=== PATIENT | male | born 1965 | race Caucasian/White ===

== ENCOUNTER 2019-02-10 04:33 | Emergency (ER) | payer OTHER ==
[2019-02-10 04:41] VITALS: TEMP 97.7
[2019-02-10] MEDS ORDERED: SODIUM CHLORIDE 0.9% 1,000 ML IV STA (04:42)
[2019-02-10 05:00] LABS: Basophils % (A) 1 %; Eosinophils # (A) 0.1 k/uL (0-0.7); Eosinophils % (A) 2 %; HCT 40.2 % (39.0-53.0); HGB 13.9 gm/dL (13.0-17.5); Lymphocytes # (A) 1.4 k/uL (1.0-4.8); Lymphocytes % (A) 33 %; MCH 31.8 pg (25.0-35.0); MCHC 34.6 g/dL (31.0-37.0); MCV 91.9 fL (80.0-100.0); Mean Platelet Volume 6.1; Monocytes # (A) 0.2 k/uL (0-1.0); Monocytes % (A) 6 %; Neutrophils # (A) 2.4 k/uL (1.3-7.7); Neutrophils % (A) 56 %; Platelet Count 235 k/uL (150-450); RBC 4.37 m/uL (4.30-5.90); RDW 12.3 % (11.5-15.5); WBC 4.3 k/uL (3.8-10.6)
[2019-02-10 05:12] LABS: ALT 27 U/L (21-72); AST 18 U/L (17-59); African American GFR (CKD) >90 (>60 ml/min/1.73 sqM); Albumin 3.7 g/dL (3.5-5.0); Alkaline Phosphatase 82 U/L (38-126); Anion Gap 8 mmol/L; Blood Urea Nitrogen 17 mg/dL (9-20); Calcium 8.5 mg/dL (8.4-10.2); Carbon Dioxide 24 mmol/L (22-30); Chloride 104 mmol/L (98-107); Glucose 311 mg/dL (74-99); Magnesium 1.9 mg/dL (1.6-2.3); Non-African American GFR(CKD) >90 (>60 ml/min/1.73 sqM); Potassium 4.1 mmol/L (3.5-5.1); Sodium 136 mmol/L (137-145); Total Bilirubin 0.4 mg/dL (0.2-1.3); Total Protein 6.7 g/dL (6.3-8.2)
--- NOTE | 2019-02-10 05:22 | XR ---
EXAMINATION TYPE: XR chest 2V DATE OF EXAM: 02/10/2019 COMPARISON: NONE HISTORY: Chest pain TECHNIQUE: Frontal and lateral views of the chest are obtained. FINDINGS: Heart and mediastinum are normal. Lungs are clear. Diaphragm is normal. Bony thorax appear s normal. IMPRESSION: Normal chest
[2019-02-10 05:26] LABS: INR 0.9 (<1.2); Partial Thromboplastin Time 26.1 sec (22.0-30.0); Prothrombin Time 10.1 sec (9.0-12.0)
[2019-02-10] MEDS ORDERED: ONDANSETRON 4 MG/2 ML VIAL IVP STA (05:37)
[2019-02-10] MEDS ORDERED: MORPHINE SULFATE 4 MG/ML SYRINGE IVP STA (05:37)
--- NOTE | 2019-02-10 05:43 | ED ---
General Adult HPI - General Source: patient Mode of arrival: ambulatory Limitations: no limitations <Verónica Donato - Last Filed: 02/13/19 04:39> <Karen Wood - Last Filed: 02/18/19 09:56> - General Chief complaint: Chest Pain Stated complaint: Chest Pain Time Seen by Provider: 02/10/19 04:42 - History of Present Illness Initial comments: Vazquez is a 53-year-old gentleman with a history of insulin-dependent diabetes, patient presents the emergency department today for evaluation of epigastric abdominal pain that woke him from sleep. Patient reports that he was in his usual state of health throughout the day yesterday, he does normal diet, he woke from sleep suddenly around 3 AM with a stabbing crushing pain in his epigastrium radiating to his back. Pain was associated nausea but no vomiting. No fevers or chills. Some pain with deep inhalation but no shortness of breath, diaphoresis or lightheadedness. Patient has no cardiac history. He is a nonsmoker, no formal diagnosis of hypertension though he was noted to be hypertensive upon EMS arrival. Family called 911 due to his complaint of pain. EMS arrived on scene to find the patient quite uncomfortable, holding his epigastrium and lower chest. EKG was unremarkable he was given aspirin and nitro with no change in his pain. His blood pressure did improve after nitro. (Verónica Donato) - Related Data Home Medications Medication Instructions Recorded Confirmed Ergocalciferol [Vitamin D2] 50,000 unit PO LEACH 02/10/19 02/10/19 Insulin Glargine,Hum.rec.anlog 20 unit SQ HS 02/10/19 02/10/19 [Basaglar Kwikpen U-100] Insulin Lispro [humaLOG Kwikpen] 15 unit SQ AC-TID 02/10/19 02/10/19 Meloxicam 15 mg PO DAILY PRN 02/10/19 02/10/19 Previous Rx's Medication Instructions Recorded Omeprazole [PriLOSEC] 20 mg PO AC-BRKFST #14 cap 02/10/19 Ranitidine HCl [Zantac] 150 mg PO BID PRN #20 tablet 02/10/19 Allergies Allergy/AdvReac Type Severity Reaction Status Date / Time No Known Allergies Allergy Verified 02/10/19 07:22 Review of Systems ROS Other: All systems not noted in ROS Statement are negative. <Verónica Donato - Last Filed: 02/13/19 04:39> ROS Other: All systems not noted in ROS Statement are negative. <Karen Wood Deshawn - Last Filed: 02/18/19 09:56> ROS Statement: Those systems with pertinent positive or pertinent negative responses have been documented in the HPI. Past Medical History Past Medical History: Diabetes Mellitus, Hyperlipidemia, Hypertension History of Any Multi-Drug Resistant Organisms: None Reported Past Surgical History: Orthopedic Surgery Past Psychological History: No Psychological Hx Reported Smoking Status: Never smoker Past Alcohol Use History: Occasional Past Drug Use History: Marijuana <Verónica Donato - Last Filed: 02/13/19 04:39> General Exam Limitations: no limitations <Verónica Donato - Last Filed: 02/13/19 04:39> - General Exam Comments Initial Comments: Physical Exam GENERAL: Patient is well-developed and well-nourished. Patient is nontoxic and well- hydrated and is in no distress. HENT: Normocephalic, Atraumatic. EYES: PERRL, EOMI PULMONARY: Unlabored respirations. No audible rales rhonchi or wheezing was noted. CARDIOVASCULAR: There is a regular rate and rhythm without any murmurs gallops or rubs. ABDOMEN: Tenderness to palpation in the epigastrium no right upper quadrant tenderness, negative Rojas sign : Deferred NEUROLOGIC: Patient is alert and oriented x3. Moving all extremities spontaneously MUSCULOSKELETAL: Normal extremities with adequate strength and full range of motion. No lower extremity swelling or edema. No calf tenderness. PSYCHIATRIC: Normal psychiatric evaluation. (Verónica Donato) Course Vital Signs 02/10/19 02/10/19 02/10/19 04:37 06:38 07:00 Temperature 97.7 F Pulse Rate 68 65 72 Respiratory 18 16 18 Rate Blood Pressure 152/86 135/82 131/82 O2 Sat by Pulse 99 97 97 Oximetry 02/10/19 02/10/19 08:00 09:00 Temperature Pulse Rate 65 68 Respiratory 18 16 Rate Blood Pressure 127/78 124/77 O2 Sat by Pulse 96 97 Oximetry EKG Findings - EKG Comments: EKG Findings:: KG was obtained due to complaint of epigastric discomfort in a 53-year-old male. EKG was obtained at 4:42 AM, rate is 65 rhythm is sinus there is a normal axis, there are normal intervals, NM 150, QRS 84, QTC 43. There are no acute ST elevations or depressions there is no evidence of acute ischemia or infarction. <Verónica Donato - Last Filed: 02/13/19 04:39> Medical Decision Making - Lab Data Result diagrams: 02/10/19 04:49 02/10/19 04:49 <Verónica Donato - Last Filed: 02/13/19 04:39> - Lab Data Result diagrams: 02/10/19 04:49 02/10/19 04:49 <Karen Wood - Last Filed: 02/18/19 09:56> - Medical Decision Making Patient was seen and evaluated, history is obtained from the patient and EMS XI this is a 53-year-old diabetic male who called 911 for evaluation of epigastric and lower chest pain associated with nausea, no vomiting no diaphoresis no radiation of pain to the shoulders, no previous cardiac history. Patient is a former alcoholic reports he has had some alcohol in the past couple of weeks due to visiting family members but is not a daily drinker. No history of pancreatitis. Labs and imaging ordered. EKG was nonischemic chest x-ray was unremarkable labs resulted with a mildly elevated lipase consistent with early pancreatitis. Patient has no history of such. CT and ultrasound were ordered. An care was signed out to Dr. Wood pending imaging. Given normal imaging the patient will be stable for discharge home. (Verónica Donato) I discussed the case with the patient. I discussed the diagnosis, differential and treatment options. The patient will be discharged home with follow up information for the GI physician executive relations specialist. Return parameters were discussed. The patient understood and agreed with the treatment plan. (Karen Wood) - Lab Data Lab Results 02/10/19 02/10/19 02/10/19 Range/Units 04:49 04:49 04:49 WBC 4.3 (3.8-10.6) k/uL RBC 4.37 (4.30-5.90) m/uL Hgb 13.9 (13.0-17.5) gm/dL Hct 40.2 (39.0-53.0) % MCV 91.9 (80.0-100.0) fL MCH 31.8 (25.0-35.0) pg MCHC 34.6 (31.0-37.0) g/dL RDW 12.3 (11.5-15.5) % Plt Count 235 (150-450) k/uL Neutrophils % 56 % Lymphocytes % 33 % Monocytes % 6 % Eosinophils % 2 % Basophils % 1 % Neutrophils # 2.4 (1.3-7.7) k/uL Lymphocytes # 1.4 (1.0-4.8) k/uL Monocytes # 0.2 (0-1.0) k/uL Eosinophils # 0.1 (0-0.7) k/uL Basophils # 0.0 (0-0.2) k/uL PT (9.0-12.0) sec INR (<1.2) APTT (22.0-30.0) sec Sodium 136 L (137-145) mmol/L Potassium 4.1 (3.5-5.1) mmol/L Chloride 104 (98-107) mmol/L Carbon Dioxide 24 (22-30) mmol/L Anion Gap 8 mmol/L BUN 17 (9-20) mg/dL Creatinine 0.69 (0.66-1.25) mg/dL Est GFR (CKD-EPI)AfAm >90 (>60 ml/min/1.73 sqM) Est GFR (CKD-EPI)NonAf >90 (>60 ml/min/1.73 sqM) Glucose 311 H (74-99) mg/dL Calcium 8.5 (8.4-10.2) mg/dL Magnesium 1.9 (1.6-2.3) mg/dL Total Bilirubin 0.4 (0.2-1.3) mg/dL AST 18 (17-59) U/L ALT 27 (21-72) U/L Alkaline Phosphatase 82 (38-126) U/L Troponin I (0.000-0.034) ng/mL NT-Pro-B Natriuret Pep <11 pg/mL Total Protein 6.7 (6.3-8.2) g/dL Albumin 3.7 (3.5-5.0) g/dL Lipase (23-300) U/L 02/10/19 02/10/19 02/10/19 Range/Units 04:49 04:49 04:49 WBC (3.8-10.6) k/uL RBC (4.30-5.90) m/uL Hgb (13.0-17.5) gm/dL Hct (39.0-53.0) % MCV (80.0-100.0) fL MCH (25.0-35.0) pg MCHC (31.0-37.0) g/dL RDW (11.5-15.5) % Plt Count (150-450) k/uL Neutrophils % % Lymphocytes % % Monocytes % % Eosinophils % % Basophils % % Neutrophils # (1.3-7.7) k/uL Lymphocytes # (1.0-4.8) k/uL Monocytes # (0-1.0) k/uL Eosinophils # (0-0.7) k/uL Basophils # (0-0.2) k/uL PT 10.1 (9.0-12.0) sec INR 0.9 (<1.2) APTT 26.1 (22.0-30.0) sec Sodium (137-145) mmol/L Potassium (3.5-5.1) mmol/L Chloride (98-107) mmol/L Carbon Dioxide (22-30) mmol/L Anion Gap mmol/L BUN (9-20) mg/dL Creatinine (0.66-1.25) mg/dL Est GFR (CKD-EPI)AfAm (>60 ml/min/1.73 sqM) Est GFR (CKD-EPI)NonAf (>60 ml/min/1.73 sqM) Glucose (74-99) mg/dL Calcium (8.4-10.2) mg/dL Magnesium (1.6-2.3) mg/dL Total Bilirubin (0.2-1.3) mg/dL AST (17-59) U/L ALT (21-72) U/L Alkaline Phosphatase (38-126) U/L Troponin I <0.012 (0.000-0.034) ng/mL NT-Pro-B Natriuret Pep pg/mL Total Protein (6.3-8.2) g/dL Albumin (3.5-5.0) g/dL Lipase 315 H (23-300) U/L Disposition Is patient prescribed a controlled substance at d/c from ED?: No <Verónica Donato - Last Filed: 02/13/19 04:39> Is patient prescribed a controlled substance at d/c from ED?: No Time of Disposition: 09:13 <Hillary Woodah Deshawn - Last Filed: 02/18/19 09:56> Clinical Impression: Epigastric pain Disposition: HOME SELF-CARE Instructions (If sedation given, give patient instructions): Epigastric Pain (ED) Additional Instructions: Please follow-up with primary care doctor in 2-4 days. You should see the GI doctor for a possible EGD and the [facility] for a full cardiac workup. return to the emergency room for any new or worsening symptoms Prescriptions: Omeprazole [PriLOSEC] 20 mg PO AC-BRKFST #14 cap Ranitidine HCl [Zantac] 150 mg PO BID PRN #20 tablet PRN Reason: Heartburn Referrals: Gio Gutierrez DO [Primary Care Provider] - 1-2 days Elisabet Bright MD [STAFF PHYSICIAN] - 1-2 days [facility] [Provider Group] - 1-2 days
--- NOTE | 2019-02-10 07:03 | CT ---
EXAMINATION TYPE: CT abdomen pelvis w con DATE OF EXAM: 02/10/2019 COMPARISON: HISTORY: pain CT DLP: 888 mGycm Automated exposure control for dose reduction was used. TECHNIQUE: Helical acquisition of images was performed from the lung bases through the pelvis. CONTRAST: Performed without Oral Contrast and with IV Contrast, patient injected with 100 mL of Isovue 300. FINDINGS: The lung bases are clear. There is no pleural effusion. Heart size is normal. Liver spleen pancreas g allbladder appear normal. Bile ducts are not dilated. Stomach appears normal. There is no adrenal mass. Kidneys show satisfactory contrast opacification. There is no hydronephrosi s. Bladder distends smoothly. There is no inguinal hernia. There is no free fluid in the pelvis. Ther e is no sign of thickened appendix. Appendix is inferior and appears normal. There is no mesenteric e kelton. There is no ascites or free air. Urinary bladder is dilated and measures 15.5 cm in length. The re is mild spondylotic change in the lumbar spine. There is some lucency in the left side of the L2 v ertebral body extending into the left pedicle and left transverse process. The margins are quite angie p that suggests an more benign etiology. There is no compression fracture. The bony pelvis is intact. There is no mesenteric edema. There is no ascites or free air. There is no sign of a bowel obstructio n. IMPRESSION: DILATED URINARY BLADDER SUGGESTIVE OF BLADDER OUTLET OBSTRUCTION. NO RENAL STONE OR OBSTRUCTION. NO SIGN OF PANCREATITIS. UNUSUAL LYTIC CHANGES IN THE LEFT SIDE OF THE L2 VERTEBRAL BODY. CLINICAL CORRELATION RECOMMENDED. TH E POSSIBILITY OF METASTATIC DISEASE OR MULTIPLE MYELOMA CANNOT BE EXCLUDED. 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
--- NOTE | 2019-02-10 07:26 | US ---
EXAMINATION TYPE: US gallbladder DATE OF EXAM: 02/10/2019 COMPARISON: NONE CLINICAL HISTORY: pancreatitis. chest pain with arm pain today EXAM MEASUREMENTS: Liver Length: 14.2 cm Gallbladder Wall: 0.2 cm CBD: 0.5 cm Right Kidney: 10.1 x 5.2 x 6.5 cm overlying bowel gas limits study Pancreas: not seen Liver: left lobe obscured by bowel otherwise right lobe seen intercostally and appears wnl Gallbladder: wnl Evidence for sonographic Rojas's sign: no CBD: wnl Right Kidney: wnl IMPRESSION: 1. No distinct abnormality appreciated.
[2019-02-10 09:13] VITALS: BP 124/77; PULSE 68; RESP 16
== END 2019-02-10 09:16 | disposition home or self-care (01) ==
LOC: EC 04:33
DX: R10.13 Epigastric pain (principal); R07.9 Chest pain, unspecified; R11.0 Nausea; R74.8 Abnormal levels of other serum enzymes; E11.9 Type 2 diabetes mellitus without complications; Z79.4 Long term (current) use of insulin
CPT/HCPCS: 99285; 96374; 96375; 96361 ×4; 36415; 93005; 83880; 80053; 83690; 83735; 84484; 85025; 85610; 85730; 71046; 76705; 74177; J2270; J2405; Q9967